=== PATIENT | male | born 1970 | race Caucasian/White ===

== ENCOUNTER 2017-07-16 16:23 | Emergency (ER) | payer BC ==
[~2017-07-16] VITALS: Ht 177.8 cm; Wt 99.7 kg
[2017-07-16 17:33] LABS: HEMATOCRIT 45.9 % (38.0-50.0); HEMOGLOBIN 16.3 G/DL (12.5-16.6); MCH 31.5 PG (29.0-34.0); MCHC 35.5 G/DL (30.0-36.0); MCV 88.6 FL (86-99); PLATELET COUNT 236 K/uL (156-360); RBC DIS.WIDTH-CV 12.8 % (11.8-14.6); RBC DIS.WIDTH-SD 41.9 % (39-53); RED BLOOD COUNT 5.18 M/uL (4.00-5.50); WHITE BLOOD COUNT 8.9 K/uL (4.1-10.2)
[2017-07-16 17:42] LABS: CHLORIDE 103 mEq/L (99-109); POTASSIUM 3.5 mEq/L (3.7-5.4); SODIUM 142 mEq/L (136-147)
[2017-07-16 17:43] LABS: GLUCOSE 102 mg/dL (70-99)
[2017-07-16 17:47] LABS: GFR ESTIMATE (CALCULATED) > 59 mL/min/ (58.99-99999)
[2017-07-16 17:48] LABS: UREA NITROGEN (BUN) 12 mg/dL (9-23)
[2017-07-16 17:53] LABS: TROP-I INTERPRETATION NEGATIVE; TROPONIN-I 0.02 ng/mL (0.0-0.30)
[2017-07-16 18:59] LABS: ALBUMIN 4.6 g/dL (3.2-4.8)
[2017-07-16 19:01] LABS: D-DIMER ELISA < 150.00 ng/mLDDU (<230)
[2017-07-16 19:02] LABS: TOTAL PROTEIN 8.2 g/dL (6.4-8.3)
[2017-07-16 19:04] LABS: TOTAL BILIRUBIN 0.5 mg/dL (0.0-1.0)
[2017-07-16 19:05] LABS: ALKALINE PHOSPHATASE 53 IU/L (3-129)
[2017-07-16 19:07] LABS: AST (GOT) 23 IU/L (2-34); DIRECT BILIRUBIN 0.2 mg/dL (0.0-0.3)
[2017-07-16 19:08] LABS: ALT (GPT) 25 IU/L (3-49); CREATINE KINASE 93 IU/L (1-294)
[2017-07-16 19:19] LABS: SERUM ETHYL ALCOHOL < 10 mg/dL
[2017-07-16 20:23] LABS: THYROTROPIN (TSH) 7.7 MIU/L (0.4-5.5)
[2017-07-16 20:42] LABS: APPEARANCE CLEAR ((CLEAR)); BILIRUBIN NEGATIVE; BLOOD NEGATIVE; COLOR YELLOW ((YELLOW)); GLUCOSE (STRIP) NEGATIVE; KETONES 80; LEUKOCYTES NEGATIVE; NITRITE NEGATIVE; PROTEIN (STRIP) NEGATIVE; SPECIFIC GRAVITY 1.018 (1.000-1.030); UROBILINOGEN 0.2 MG/DL (0.2-1.0)
[2017-07-16 20:55] LABS: AMPHETAMINE NEGATIVE (500 ng/mL); BARBITURATES NEGATIVE (200 ng/mL); BENZODIAZEPINES NEGATIVE (150 ng/mL); BUPRENORPHINE NEGATIVE (10 ng/mL); COCAINE NEGATIVE (150 ng/mL); METHADONE NEGATIVE (200 ng/mL); METHAMPHETAMINE NEGATIVE (500 ng/mL); OPIATES (MORPHINE) NEGATIVE (100 ng/mL); OXYCODONE NEGATIVE (100 ng/mL); PHENCYCLIDINE NEGATIVE (25 ng/mL); PROPOXYPHENE NEGATIVE (300 ng/mL); THC CANNABINOIDS NEGATIVE (50 ng/mL); TRICYCLIC ANTIDEPRESSANTS NEGATIVE (300 ng/mL)
[2017-07-16 21:29] LABS: TROP-I INTERPRETATION NEGATIVE; TROPONIN-I 0.02 ng/mL (0.0-0.30)
[2017-07-16] MEDS ORDERED: FIORICET 50-301 EAC1 PO (22:08)
[2017-07-16] MEDS ORDERED: MOTRIN800 MG PO (22:08)
[2017-07-16 22:23] VITALS: BP 118/81
== END 2017-07-16 22:27 | disposition home or self-care (01) ==
LOC: EME 16:23
PROVIDERS: Physician Assistant
DX: R51 Headache (principal); M54.2 Cervicalgia; R07.89 Other chest pain; E86.0 Dehydration; R94.6 Abnormal results of thyroid function studies; R00.0 Tachycardia, unspecified; F17.290 Nicotine dependence, other tobacco product, uncomplicated; Z86.69 Personal history of other diseases of the nervous system and sense organs
CPT/HCPCS: 70450; 70498; 71046; 80048; 80076; 81003; 82550; 84439; 84443; 84484; 85027; 85379; 93005; 99281; 99285; G0480; J7030